=== PATIENT | female | born 2000 | race Caucasian/White ===

== ENCOUNTER 2024-02-07 08:40 | Day surgery (SDC) | payer OTHER ==
[~2024-02-07] VITALS: Ht 162.6 cm; Wt 57.8 kg
[~2024-02-07 08:40] MED LIST: ALTA1TAB3 PO
[2024-02-07] MEDS ORDERED: ONDANSETRON 4MG 2ML VIAL As Ordered ONE (08:48)
[2024-02-07] MEDS ORDERED: LIDOCAINE 2% 100MG/5ML SDV (FOR ANES.) As Ordered ONE (08:48)
[2024-02-07] MEDS ORDERED: propofoL 200 MG/20 ML VIAL As Ordered ONE (08:48)
[2024-02-07] MEDS ORDERED: SUGAMMADEX SODIUM 500 MG/5 ML VIAL (BRIDION) As Ordered ONE (08:48)
[2024-02-07] MEDS ORDERED: ROCURONIUM BROMIDE 50MG/5ML VIAL As Ordered ONE (08:48)
[2024-02-07] MEDS ORDERED: dexmedeTOMIDine (4MCG/ML)200MCG/50ML BTL (PRECEDEX) As Ordered ONE (08:51)
[2024-02-07] MEDS ORDERED: NS (Normal Saline) 0.9% 1,000 ML IV SCH ×2 (09:30→11:05)
[2024-02-07] MEDS ORDERED: MIDAZOLAM INJ 2MG/2ML VIAL As Ordered ONE (09:47)
[2024-02-07] MEDS ORDERED: fentaNYL 100 MCG/2 ML INJECTION As Ordered ONE (09:47)
[2024-02-07] MEDS: OXYMETAZOLINE 0.05% NASAL SPRAY (AFRIN) As Ordered ONE (10:30)
[2024-02-07] MEDS: AMPICILLIN SOD/SULBACTAM SOD 3 GM in SODIUM CHLORIDE 0.9% 100ML ADD 100 ML IV ONE (10:38)
[2024-02-07] MEDS: LIDOCAINE 2% W/ EPINEPHRINE 1.7 ML DENTAL INJ As Ordered ONE (10:43)
[2024-02-07] MEDS ORDERED: ePHEDrine SULFATE 25 MG/5 ML(5MG/ML) SYRINGE As Ordered ONE (10:52)
[2024-02-07] MEDS ORDERED: fentaNYL 100 MCG/2 ML INJECTION IV PRN (11:05)
[2024-02-07] MEDS ORDERED: HYDROMORPHONE HCL 0.5 MG/ 0.5 ML SYRINGE IV PRN (11:05)
[2024-02-07] MEDS: ONDANSETRON 4MG 2ML VIAL IV PRN (11:25)
[2024-02-07] MEDS: oxyCODONE 5MG TAB PO PRN (11:26)
[2024-02-07] MEDS ORDERED: ACETAMINOPHEN 1000MG/100ML IV BAG As Ordered ONE (12:02)
[2024-02-07 12:10] VITALS: BP 113/77; TEMP 97.4; O2SAT 100
== END 2024-02-07 12:43 | disposition home or self-care (01) ==
LOC: M SDC 08:40
PROVIDERS: ATTEND Dentist
DX: K02.9 Dental caries, unspecified (principal); F40.232 Fear of other medical care; Z79.3 Long term (current) use of hormonal contraceptives
CPT/HCPCS: 81025; 88300; C9290; D7210; J0131; J0295; J1100; J2250; J2405; J3010